=== PATIENT | male | born 1940 | race Caucasian/White ===

== ENCOUNTER 2025-01-12 12:13 | Emergency (ER) | payer MEDICARE ==
[~2025-01-12] VITALS: Ht 167.6 cm; Wt 86.2 kg
[2025-01-12 13:02] LABS: PLATELET COUNT (AUTO) 233 K/uL (152-348); RED BLOOD CELL COUNT(AUTO) 5.09 MIL/uL (4.06-5.63); RED CELL DISTRIBUTION WIDTH 14.2 % (12.1-16.2); WHITE BLOOD COUNT (AUTO) 5.1 K/uL (3.6-10.2)
[2025-01-12 13:14] LABS: CREATININE 1.0 mg/dL (0.6-1.3); SODIUM SERUM 137 mmol/L (136-145); UREA NITROGEN, BLOOD 17 mg/dL (7-18)
[2025-01-12 13:20] LABS: ASPARTATE AMINOTRANSFERASE 15 U/L (15-37); TOTAL PROTEIN, SERUM 7.0 g/dL (6.4-8.2)
[2025-01-12] MEDS ORDERED: METOPROLOL TARTRATE 5 MG/5 ML VIAL IVP ONE (13:22)
[2025-01-12] MEDS ORDERED: MAGNESIUM SULFATE/D5W 200 ML ONE (13:22)
[2025-01-12] MEDS: METOPROLOL TARTRATE 5 MG/5 ML VIAL IVP ONE (13:36)
[2025-01-12] MEDS: MAGNESIUM SULFATE 2 GM in IV DEXTROSE 5% 100 ML IV ONE (13:38)
[2025-01-12] MEDS ORDERED: POTASSIUM BICARBONATE/CIT AC 25 MEQ TABLET.EFF ONE (14:24)
[2025-01-12] MEDS: POTASSIUM BICARBONATE/CIT AC 25 MEQ TABLET.EFF PO ONE (14:36)
[2025-01-12] MEDS ORDERED: SWABABLE VALVE TRANSFER SET EA MC ONE (14:37)
[2025-01-12] MEDS ORDERED: IV NORMAL SALINE 250 ML IV ONE (14:37)
[2025-01-12] MEDS ORDERED: IOHEXOL 350 100 ML INFUS..BTL ONE (14:37)
[2025-01-12 17:18] VITALS: BP 115/78; TEMP 98; O2SAT 98
== END 2025-01-12 17:19 | disposition home or self-care (01) ==
LOC: ER 12:13
DX: R00.8 Other abnormalities of heart beat (principal); E87.6 Hypokalemia; E78.5 Hyperlipidemia, unspecified; E83.42 Hypomagnesemia; R53.1 Weakness; R10.9 Unspecified abdominal pain; R07.9 Chest pain, unspecified; R79.89 Other specified abnormal findings of blood chemistry; I25.2 Old myocardial infarction
CPT/HCPCS: 99285; 71275; 96365; 96366; 71045; 96375; 80076; 80048; 83880; 83735; 85025; 85379; 85730; 84484 ×3; 36415; 74177; 93005; J3475 ×2; J3490; Q9967; A4606; A4663